=== PATIENT | male | born 1995 | race Caucasian/White ===

== ENCOUNTER 2016-12-26 08:24 | Emergency (ER) | payer BC ==
[2016-12-26 09:02] VITALS: BP 140/71
--- NOTE | 2016-12-26 09:04 | UC ---
Skin Complaint HPI - HPI Summary HPI Summary: He had some irritation in the area preceeding a blister type rash that has been present for a few days. It is mildy "irritated" but no outright pain or fever. No prior rash. It is itchy at times as well. - History of Current Complaint Chief Complaint: UCSkin Time Seen by Provider: 12/26/16 08:38 Stated Complaint: RASH LEFT LEG Hx Obtained From: Patient Onset/Duration: Gradual Onset Skin Exposure Onset/Duration: Days Ago Timing: Constant Onset Severity: Mild Current Severity: Moderate Location: Discrete - L groin and left lower back. Aggravating: Nothing Alleviating: Nothing Associated Signs & Symptoms: Positive: Negative - Allergy/Home Medications Allergies/Adverse Reactions: Allergies Allergy/AdvReac Type Severity Reaction Status Date / Time No Known Allergies Allergy Verified 12/26/16 08:33 Home Medications: Home Medications Modafinil TAB* [Provigil TAB*] 100 mg PO BID 12/26/16 [History Confirmed ] Review of Systems All Other Systems Reviewed And Are Negative: Yes PMH/Surg Hx/FS Hx/Imm Hx Endocrine History Of: Denies: Diabetes - Surgical History Surgical History: None - Family History Known Family History: Positive: Other - no hx of atopy. - Social History Occupation: Employed Full-time Alcohol Use: Weekly Substance Use Type: None Smoking Status (MU): Never Smoked Tobacco Physical Exam Triage Information Reviewed: Yes Appearance: Well-Appearing, No Pain Distress, Well-Nourished Vital Signs: Initial Vital Signs Temp 98.3 F 12/26/16 08:26 Pulse 62 12/26/16 08:26 Resp 15 12/26/16 08:26 BP 140/71 12/26/16 08:26 Pulse Ox 100 12/26/16 08:26 Vital Signs Reviewed: Yes Eyes: Positive: Conjunctiva Clear. Negative: Conjunctiva Inflamed ENT Exam: Normal Neck exam: Normal Neck: Positive: Supple, Nontender, No Lymphadenopathy Respiratory Exam: Normal Respiratory: Positive: Chest non-tender, Lungs clear, Normal breath sounds, No respiratory distress, No accessory muscle use. Negative: Respiratory distress Cardiovascular Exam: Normal Cardiovascular: Positive: RRR, No Murmur, Pulses Normal, Brisk Capillary Refill. Negative: Tachycardia Abdominal Exam: Normal Abdomen Description: Positive: Nontender, No Organomegaly, Soft Musculoskeletal Exam: Normal Musculoskeletal: Positive: Strength Intact, ROM Intact, No Edema Neurological Exam: Normal Neurological: Positive: Alert, Muscle Tone Normal, Fatigued Psychological Exam: Normal Skin: Positive: rashes - Left inguinal and Left lower back clear fluid filled vesicles with mild surrounding redness. non tender. Course/Dx - Course Course Of Treatment: viral pcr obtained to rule out genital herpes. several fluid vesicles unroofed and sample obtained. this is most c/w shingles as there are no ulcerations and it is not very tender. - Differential Diagnoses - Skin Complaint Differential Diagnoses: Abscess, Cellulitis, Contact Dermatitis, Diabetes, Eczema, Foreign Body, Lymphadenitis, Lymphangitis, Poison [place], Poison [place], Scabies, Tinea, Viral Exanthem - Diagnoses Provider Diagnoses: viral rash. possible shingles versus herpes. Discharge - Discharge Plan Condition: Good Disposition: HOME Prescriptions: Acyclovir CAP* [Zovirax CAP*] 400 mg PO 5ID #35 cap predniSONE TAB* [Deltasone TAB*] 20 mg PO DAILY #15 tab Patient Education Materials: Acute Rash (ED), Viral Exanthem (ED) Referrals: No Primary Care Phys,NOPCP [Primary Care Provider] - Additional Instructions: call back daily for results.
== END 2016-12-26 09:10 | disposition home or self-care (01) ==
LOC: UCCORT 08:24
DX: R21 Rash and other nonspecific skin eruption (principal)
CPT/HCPCS: 87529; 87798; 99212; G0463

== ENCOUNTER 2019-02-06 07:24 | Emergency (ER) | payer BC ==
--- OUTSIDE RECORDS SUMMARY | 2019-02-06 07:31 | XMS REPORT | Continuity of Care Document ---
:1995 External Reference #:[id number] Author Name Soco Purdy NP Address [address] [place] [address] Care Team Providers Name Role Phone Mitesh, Bryan, DO Care Team Information Sport Psychologist Unavailable Bryan Sagastume, DO Primary Care Physician Unavailable Payers Date Identification Numbers Payment Provider Subscriber Policy Number: [id number] MELISSA GERONIMO Andree Kamryn PayID: [id number] [address] [address] [place] [address] Family History Date Family Member(s) Observation Comments Father Non Contributory Mother Non Contributory Social History Type Date Description Comments Sex Unknown Occupation [employer] Tobacco Use Start: Unknown Never Smoked Cigarettes ETOH Use Current Alcohol Use - 1-3 Days A Week. Recreational Drug Use Never Used Drugs Allergies, Adverse Reactions, Alerts Description No Known Drug Allergies Medications Active Medications SIG Qnty Indications Ordering Provider Date Modafinil 1 tab by mouth in 60tabs Obed Padilla, 01/13/2019 200mg the in the morning M.D. Tablets and 1 in the afternoon Zyrtec Allergy 1 by mouth every Unknown 10mg day Tablets History Medications Xyrem 2.25 gm @hs repeat 540ml Obed Padilla, 05/22/2018 - 500mg/ml 2.25 in four hours M.D. 06/30/2018 Solution Modafinil 2 by mouth every 120tabs Obed Padilla, 11/08/2016 - 100mg morning and 1-2 at M.D. 01/13/2019 Tablets lunch Modafinil 1 by mouth every 60tabs Obed Padilla, 09/27/2016 - 100mg morning as needed M.D. 11/08/2016 Tablets May increase to 2 if symptoms are not improved in 2 weeks. DX narcolepsy Vital Signs Date Vital Result Comment 01/13/2019 9:06am Weight 199.00 lb Height 68.5 inches 5'8.50" BMI (Body Mass Index) 29.8 kg/m2 BP Systolic 111 mmHg BP Diastolic 72 mmHg Heart Rate 55 /min O2 % BldC Oximetry 98 % Body Temperature 97.4 F [place] Score 20 Pain Level 0 05/22/2018 3:55pm Weight 188.00 lb Height 68.5 inches 5'8.50" BMI (Body Mass Index) 28.2 kg/m2 BP Systolic 113 mmHg BP Diastolic 76 mmHg Heart Rate 68 /min O2 % BldC Oximetry 98 % Body Temperature 97.9 F [place] Score 18 Pain Level 0 04/11/2018 7:32am Weight 191.00 lb Height 68.5 inches 5'8.50" BMI (Body Mass Index) 28.6 kg/m2 BP Systolic 115 mmHg BP Diastolic 69 mmHg Heart Rate 44 /min O2 % BldC Oximetry 98 % Body Temperature 97.6 F Pain Level 0 11/06/2017 2:28pm Weight 195.00 lb Height 68.5 inches 5'8.50" BMI (Body Mass Index) 29.2 kg/m2 BP Systolic 129 mmHg BP Diastolic 78 mmHg Heart Rate 63 /min O2 % BldC Oximetry 98 % Body Temperature 98.6 F Pain Level 0 01/08/2017 8:06am Weight 194.00 lb Height 68.5 inches 5'8.50" BMI (Body Mass Index) 29.1 kg/m2 BP Systolic 115 mmHg BP Diastolic 72 mmHg Heart Rate 56 /min O2 % BldC Oximetry 96 % Body Temperature 97.5 F 11/08/2016 8:03am Weight 197.00 lb Height 68.5 inches 5'8.50" BMI (Body Mass Index) 29.5 kg/m2 BP Systolic 118 mmHg BP Diastolic 72 mmHg Heart Rate 52 /min O2 % BldC Oximetry 99 % Body Temperature 97.8 F 09/04/2016 8:42am Weight 196.00 lb Height 68.5 inches 5'8.50" BMI (Body Mass Index) 29.4 kg/m2 BP Systolic 126 mmHg BP Diastolic 78 mmHg Heart Rate 83 /min O2 % BldC Oximetry 97 % Body Temperature 98.0 F [place] Score 17 Neck Circumference in inches 16.25 Results Test Date Facility Test Result H/L Range Note Liver Function 01/08/2017 [facility] Total Protein 6.8 g/dL N 6.4-8.2 1 Tests [address] [place] [address] [phone] Albumin 4.0 g/dL N 3.4-5.0 Globulin 2.8 g/dL N 1.9-4.3 Alb/Glob 1.4 ratio Bilirubin,Total 0.5 mg/dL N 0.2-1.0 Bilirubin,Direct 0.1 mg/dL N 0.0-0.2 Bilirubin,Indirect 0.4 mg/dL N 0.0-0.9 Sgot/Ast 34 U/L N 15-37 SGPT/Alt 37 U/L N 12-78 Alkaline Phosphatase 69 U/L N 45-117 Basic Metabolic Panel 01/08/2017 [facility] Glucose 76 mg/dL N 74-106 [address] [place], [place] [id number] [phone] BUN 27 mg/dL High 7-18 Creatinine 1.3 mg/dL N 0.6-1.3 Glom Filtration Rate, Estimate >60 mL/min >60 If >60 mL/min >60 2 BUN/Creat 20.7 ratio Sodium 142 mmol/L N 136-145 Potassium 4.1 mmol/L N 3.5-5.1 Chloride 107 mmol/L N 98-107 Carbon Dioxide 29 mmol/L N 21-32 Anion Gap 6 mEq/L Low 8-16 Calcium 9.3 mg/dL N 8.5-10.1 1 G47.419 G47.9 2 Note: Persistent reduction for 3 months or more in an eGFR <60 mL/min/1.73 m2 defines CKD. Patients with eGFR values >/=60 mL/min/1.73 m2 may also have CKD if evidence of persistent proteinuria is present. The original MDRD equation for estimated GFR is not valid for patients less than 18 years of age. Additional information may be found at [email or web address]. Procedures Date Code Description Status 09/17/2016 11025 MSLT Sleep Study Completed 09/16/2016 68241 Sleep Staging 4Or More Para Completed 09/04/2016 07275 Fiberoptic Laryngoscopy,Diag. 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 Office Visit 04/11/2018 Main Office Soco Marizol Purdy, SECURITIES LENDING TRADER G47.9 Sleep disorder, 7:30a unspecified G47.419 Narcolepsy without cataplexy Office Visit 11/06/2017 2:30p Main Office Soco A G47.419 Narcolepsy without Purdy, SECURITIES LENDING TRADER cataplexy Office Visit 01/08/2017 8:00a Main Office Soco A G47.419 Narcolepsy without Purdy, SECURITIES LENDING TRADER cataplexy Office Visit 11/08/2016 8:00a Main Office Soco A G47.419 Narcolepsy without Purdy, SECURITIES LENDING TRADER cataplexy Office Visit 09/27/2016 1:45p Main Office Soco A G47.419 Narcolepsy without Purdy, SECURITIES LENDING TRADER cataplexy G47.9 Sleep disorder, unspecified Office Visit 09/04/2016 8:30a Main Office Soco A G47.9 Sleep disorder, Gurwinder, SECURITIES LENDING TRADER unspecified R06.83 Snoring G47.00 Insomnia, unspecified Plan of Treatment Future Appointment(s):07/15/2019 8:45 am - Soco Purdy, SECURITIES LENDING TRADER at Main [id number]/04/2016 - Soco Purdy NPG47.9 Sleep disorder, pfzloxrwoaqD64.83 GkcskcwZ15.00 Insomnia, unspecifiedNew Labs:Drug Abuse W/Confirm, Ur, Ordered: 09/04/16New Orders:PSG/MSLT, Scheduled: 09/16/16
--- OUTSIDE RECORDS SUMMARY | 2019-02-06 07:31 | XMS REPORT | Continuity of Care Document ---
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 Recreational Drug Use Never Used Drugs Allergies, Adverse Reactions, Alerts Description No Known Drug Allergies Medications Active Medications SIG Qnty Indications Ordering Provider Date Modafinil 2 by mouth every 120tabs Obed Padilla, 11/08/2016 100mg Tablets morning and 1-2 M.D. at lunch Zyrtec Allergy 1 by mouth every Unknown 10mg day Tablets History Medications Xyrem 2.25 gm @hs repeat 540ml Obed Padilla, 05/22/2018 - 500mg/ml 2.25 in four hours M.D. 06/30/2018 Solution Modafinil 1 by mouth every 60tabs Obed [...] Oximetry 98 % Body Temperature 97.4 F Pain Level 0 05/22/2018 3:55pm Weight 188.00 lb Height 68.5 inches 5'8.50" BMI (Body Mass Index) 28.2 kg/m2 BP Systolic 113 mmHg BP Diastolic 76 mmHg Heart Rate 68 /min O2 % BldC Oximetry 98 % Body Temperature 97.9 F [place] Score 18 Pain Level 0 04/11/2018 7:32am [...] Oximetry 97 % Body Temperature 98.0 F [place] Score 17 Neck Circumference in inches 16.25 Results Test Date Facility Test Result H/L Range Note Liver Function 01/08/2017 [facility] Total Protein 6.8 g/dL N 6.4-8.2 1 Tests [address] [place] [address] [phone] Albumin 4.0 g/dL N 3.4-5.0 Globulin 2.8 g/dL N 1.9-4.3 Alb/Glob 1.4 ratio Bilirubin,Total 0.5 mg/dL N 0.2-1.0 Bilirubin,Direct 0.1 mg/dL N 0.0-0.2 Bilirubin,Indirect 0.4 mg/dL N 0.0-0.9 Sgot/Ast 34 U/L N 15-37 SGPT/Alt 37 U/L N 12-78 Alkaline Phosphatase 69 U/L N 45-117 Basic Metabolic Panel 01/08/2017 [facility] Glucose 76 mg/dL N 74-106 [address] [place], [place] [address] [phone] BUN 27 mg/dL High 7-18 Creatinine 1.3 [...] [email or web address]. Procedures Date Code Description Status 09/17/2016 73806 MSLT Sleep Study Completed 09/16/2016 72818 Sleep Staging 4Or More Para Completed 09/04/2016 22757 Fiberoptic Laryngoscopy,Diag. Completed Encounters Type Date Location Provider Dx Diagnosis Office Visit 05/22/2018 Main Office Francesco Gamboa M.D G47.419 Narcolepsy without 3:45p cataplexy Office Visit 04/11/2018 Main Office Soco Purdy G47.9 Sleep disorder , 7:30a SENIOR JAVA DATA ARCHITECT unspecified G47.419 Narcolepsy without cataplexy Office Visit 11/06/2017 2:30p Main Office Soco A G47.419 Narcolepsy without Purdy, SENIOR JAVA DATA ARCHITECT cataplexy Office Visit 01/08/2017 8:00a Main Office Soco A G47.419 Narcolepsy without Purdy, SENIOR JAVA DATA ARCHITECT cataplexy Office Visit 11/08/2016 8:00a Main Office Soco A G47.419 Narcolepsy without Purdy, SENIOR JAVA DATA ARCHITECT cataplexy Office Visit 09/27/2016 1:45p Main Office Soco A G47.419 Narcolepsy without Purdy, SENIOR JAVA DATA ARCHITECT cataplexy G47.9 Sleep disorder, unspecified Office Visit 09/04/2016 8:30a Main Office Soco A G47.9 Sleep disorder, Purdy, SENIOR JAVA DATA ARCHITECT unspecified R06.83 Snoring G47.00 Insomnia, unspecified Plan of Treatment 09/04/2016 - Soco Purdy, NPG47.9 Sleep disorder, hbzyrorkkzgC19.83 TuimlqeL83.00 Insomnia, unspecifiedNew Labs:Drug Abuse W/Confirm, Ur, Ordered: 09/04/16New Orders:PSG/MSLT, Scheduled: 09/16/16
--- NOTE | 2019-02-06 08:29 | UC ---
Back Pain HPI - HPI Summary HPI Summary: 23-year-old male comes in with a chief complaints of upper back pain. Pain is shoulder blades thoracic spine and also in the lower cervical spine. Pain is worse with movement of arms taking a deep breath. He is not short of breath. No fevers or chills rash. He has been seeing chiropractor does help some with the pain. he is also seen in care doctor had some muscle relaxers months ago she had only helps briefly. The pain does not go down back does not go into his arms weakness or numbness. - History of Current Complaint Chief Complaint: UCBackPain Stated Complaint: UPPER BACK PAIN Time Seen by Provider: 02/06/19 08:14 Pain Intensity: 5 - Allergies/Home Medications Allergies/Adverse Reactions: Allergies Allergy/AdvReac Type Severity Reaction Status Date / Time No Known Allergies Allergy Verified 02/06/19 07:31 Home Medications: Home Medications Cyclobenzaprine TAB* [Flexeril 10 MG TAB*] 10 mg PO BID PRN 02/06/19 [History Confirmed 02/06/19] PMH/Surg Hx/FS Hx/Imm Hx Previously Healthy: Yes - Surgical History Surgical History: None - Family History Known Family History: Positive: Other - no hx of atopy. - Social History Alcohol Use: Occasionally Substance Use Type: None Smoking Status (MU): Never Smoked Tobacco Review of Systems All Other Systems Reviewed And Are Negative: Yes Constitutional: Positive: Negative Skin: Positive: Negative Eyes: Positive: Negative ENT: Positive: Negative Respiratory: Positive: Negative Cardiovascular: Positive: Negative Gastrointestinal: Positive: Negative Motor: Positive: Negative Neurovascular: Positive: Negative Musculoskeletal: Positive: Other: - SEE HPI Neurological: Positive: Negative Psychological: Positive: Negative Is Patient Immunocompromised?: No Physical Exam Triage Information Reviewed: Yes Appearance: Well-Appearing, No Pain Distress, Well-Nourished Vital Signs: Initial Vital Signs Temp 98.1 F 02/06/19 07:34 Pulse 56 02/06/19 07:34 Resp 16 02/06/19 07:34 BP 135/78 02/06/19 07:34 Pulse Ox 100 02/06/19 07:34 Vital Signs Reviewed: Yes Eye Exam: Normal Eyes: Positive: Conjunctiva Clear Neck: Positive: Supple, Other: - MILD TENDERNESS LOWER POSTERIOR NECK. FROM. Respiratory: Positive: Lungs clear, Normal breath sounds, No respiratory distress, Other: - Patient is tender to palpation on the medial aspect scapula. Cardiovascular: Positive: RRR Musculoskeletal: Positive: Strength Intact, Other: - Normal radial pulses bilaterally. Strength in the fingers wrist elbows and shoulders is normal. No sensation deficit normal capillary refill. Range of motion of the fingers wrist elbows is normal. Shoulder extension is decreased to 110 bilaterally and abduction also 110 bilaterally limited by discomfort in the upper back. Internal rotation right and left are both T8 Neurological: Positive: Alert, Muscle Tone Normal Psychological Exam: Normal Psychological: Positive: Age Appropriate Behavior Skin Exam: Normal Back Pain Course/Dx - Course Course Of Treatment: Patient Name: JAYLEEN STEARNS Medical Record#: [id number] Ordering Physician: Bassem Uribe MD Acct.#: [id number] : 1995 Age: 23 Sex: M Location: [facility] Exam Date: 02/06/19821 ADM Status: REG ER Order Information: THORACIC SPINE 2 VWS Accession Number: [id number] CPT: 83715 HISTORY: PAIN X 8 MONTHS,WORSE LAST 2 DAYS COMPARISONS: None relevant available at the time of dictation. VIEWS: 2, Frontal and lateral views of the thoracic spine. FINDINGS: ALIGNMENT: There is a trace scoliotic curvature of the spine. VERTEBRAL BODIES: The vertebral body heights are normal. The interpedicular distances are normal. JOINTS: Unremarkable. INTERVERTEBRAL DISCS: The intervertebral disc heights are normal. SOFT TISSUE: Unremarkable OTHER: The visualized lungs are clear. IMPRESSION: UNREMARKABLE RADIOGRAPHS OF THE THORACIC SPINE. <Electronically signed by Rony Robertson MD in OV> 02/06/19941 Patient Name: JAYLEEN STEARNS Medical Record#: [id number] Ordering Physician: Bassem Uribe MD Acct.#: [id number] : 1995 Age: 23 Sex: M Location: [facility] Exam Date: 02/06/19821 ADM Status: REG ER Order Information: SP CERVICAL 4+VWS Accession Number: [id number] CPT: 08871 HISTORY: PAIN X 8 MONTHS,WORSE LAST 2 DAYS COMPARISONS: None relevant available at the time of dictation. VIEWS: 5, Frontal, lateral, open-mouth odontoid, and bilateral oblique views of the cervical spine. FINDINGS: The cervical spine is visualized from the skull base through C7-T1. ALIGNMENT: The alignment is normal. VERTEBRAL BODIES: The odontoid process is intact. The atlantoaxial intervals are symmetric. JOINTS: There is no subluxation or dislocation. The facet joints are unremarkable. There is no osseous neural foraminal narrowing on the oblique views. INTERVERTEBRAL DISCS: The intervertebral disc heights are normal. SOFT TISSUE: The prevertebral soft tissues are normal. OTHER: The skull base is normal. The lung apices are clear. IMPRESSION: STRAIGHTENING OF THE CERVICAL LORDOSIS. <Electronically signed by Rony Robertson MD in OV> 02/06/19 1000 I discussed the x-rays with the patient. He has mild scoliosis on thoracic spine x-ray. Unsure if this is chronic or secondary to muscle contraction with his present pain. Patient heart he has muscle relaxer prescribed by his primary care physician. Is also taking ibuprofen. Plan is to follow-up with sports medicine. - Differential Dx/Diagnosis Provider Diagnosis: Thoracic back pain, Cervical pain (neck) Discharge - Sign-Out/Discharge Documenting (check all that apply): Patient Departure All imaging exams completed and their final reports reviewed: Yes - Discharge Plan Condition: Stable Disposition: HOME Patient Education Materials: Thoracic Pain (ED), Neck Pain (ED) Referrals: Chandrakant Sagastume DO [Primary Care Provider] - [facility] [Provider Group] Additional Instructions: FOLLOW UP WITH SPORTS MEDICINE. GET RECHECKED SOONER IF YOUR CONDITION WORSENS OR ANY QUESTIONS OR CONCERNS. - Billing Disposition and Condition Condition: STABLE Disposition: Home
[2019-02-06 10:35] VITALS: BP 115/75
== END 2019-02-06 10:39 | disposition home or self-care (01) ==
LOC: UCCORT 07:24
DX: M54.6 Pain in thoracic spine (principal); M54.2 Cervicalgia
CPT/HCPCS: 72050; 72070; 99211; G0463

== ENCOUNTER 2019-03-19 17:26 | Emergency (ER) | payer BC ==
[2019-03-19 17:40] VITALS: BP 125/73
--- NOTE | 2019-03-19 18:12 | ED ---
Skin Complaint - HPI Summary HPI Summary: 23 yr old male with the complaint of growth left cheek. Onset about three weeks ago. He thought it was a pimple. It has gotten bigger. He thought that maybe he could pop it, and took a needle and stuck it in a few days ago. It is hard and it has at some times had some oozing. No other complaints. No fever or chills. - History of Current Complaint Chief Complaint: UCSkin Time Seen by Provider: 03/19/19 17:56 Stated Complaint: SKIN COMPLAINT Pain Intensity: 0 - Allergy/Home Medications Allergies/Adverse Reactions: Allergies Allergy/AdvReac Type Severity Reaction Status Date / Time No Known Allergies Allergy Verified 03/19/19 17:41 PMH/Surg Hx/FS Hx/Imm Hx Endocrine/Hematology History: Denies: Hx Diabetes Infectious Disease History: No Infectious Disease History: Denies: Traveled Outside the [place] in Last 30 Days - Family History Known Family History: Positive: Other - no hx of atopy. - Social History Occupation: Employed Full-time Lives: With Family Alcohol Use: Weekly Substance Use Type: Reports: None Smoking Status (MU): Never Smoked Tobacco Review of Systems Constitutional: Negative Positive: Other - growth left cheek. All Other Systems Reviewed And Are Negative: Yes Physical Exam Triage Information Reviewed: Yes Vital Signs On Initial Exam: Initial Vitals Temp Pulse Resp BP Pulse Ox 97.6 F 62 16 125/73 100 03/19/19 17:35 03/19/19 17:35 03/19/19 17:35 03/19/19 17:35 03/19/19 17:35 Vital Signs Reviewed: Yes Appearance: Positive: Well-Appearing, No Pain Distress Skin: Positive: Warm, Skin Color Reflects Adequate Perfusion Head/Face: Positive: Other Eyes: Positive: EOMI ENT: Positive: Pharynx normal, Other - he has a growth, mass about 1cm in diamter and protruding about 1cm from the face that is hard, and appears somewhat friable. Non tender. On the inside of his cheek no mass palptated. no lymphadenopathy neck. Dental: Negative: Cervical Lymphadenopathy Neck: Positive: Nontender Respiratory/Lung Sounds: Positive: Clear to Auscultation, Breath Sounds Present Cardiovascular: Positive: RRR. Negative: Murmur Abdomen Description: Negative: Distended Musculoskeletal: Positive: Strength/ROM Intact Neurological: Positive: Sensory/Motor Intact, Alert, Oriented to Person Place, Time, CN Intact II-III, Normal Gait, Speech Normal Psychiatric: Positive: Normal Diagnostics - Vital Signs Vital Signs Temp Pulse Resp BP Pulse Ox 03/19/19 17:35 97.6 F 62 16 125/73 100 - Laboratory Lab Statement: Any lab studies that have been ordered have been reviewed, and results considered in the medical decision making process. Course/Dx - Course Course Of Treatment: There is a 1 cm size mass right side of face that appear may be hemagioma vs basal cell. I have referred him to Dr Padilla ENT, and also to plastic surgery for careful removal and closure. The patient will call his primary doctor as well for assistance with follow up . - Diagnoses Provider Diagnoses: Skin growth Discharge - Sign-Out/Discharge Documenting (check all that apply): Patient Departure All imaging exams completed and their final reports reviewed: No Studies - Discharge Plan Condition: Good Disposition: HOME Patient Education Materials: Basal Cell Carcinoma (DC), Skin Cancer Prevention (ED) Referrals: Chandrakant Sagastume DO [Primary Care Provider] - 1 Day Obed Padilla MD [Medical Doctor] - 1 Day Yuliya HAGAN,Danny Horta [Medical Doctor] - 1 Day - Billing Disposition and Condition Condition: GOOD Disposition: Home
== END 2019-03-19 18:19 | disposition home or self-care (01) ==
LOC: UCCORT 17:26
DX: D49.2 Neoplasm of unspecified behavior of bone, soft tissue, and skin (principal)
CPT/HCPCS: 99211; G0463

== ENCOUNTER 2019-06-29 21:05 | Emergency (ER) | payer BC ==
[2019-06-29 21:36] VITALS: BP 115/69
[2019-06-29] MEDS ORDERED: Acetaminophen TAB* 325 MG PO ONE (21:47)
[2019-06-29] MEDS ORDERED: Ondansetron ODT TAB* 4 MG PO ONE (21:48)
--- NOTE | 2019-06-29 21:55 | ED ---
Respiratory - HPI Summary HPI Summary: 24 yr old male with the complaint of fever, chills, body aches, emesis times two , mild cough. He has no abdominal pain, no diarrhea. Onset of illness was prior to Noon today with his first fever afternoon today around 3pm. He took 400 mg of ibuprofen about 830 pm. He has no headache, no photophobia. He has no other complaints. He last urinated an hour ago and it was clear. - History of Current Complaint Chief Complaint: UCGeneralIllness Stated Complaint: FLU LIKE SYMPTOMS Time Seen by Provider: 06/29/19 21:44 Pain Intensity: 9 - Allergy/Home Medications Allergies/Adverse Reactions: Allergies Allergy/AdvReac Type Severity Reaction Status Date / Time No Known Allergies Allergy Verified 06/29/19 21:27 Home Medications: Home Medications Ibuprofen TAB* [Advil TAB*] 400 mg PO Q6H PRN 06/29/19 [History Confirmed ] PMH/Surg Hx/FS Hx/Imm Hx Endocrine/Hematology History: Denies: Hx Diabetes Infectious Disease History: Yes Infectious Disease History: Reports: Hx Shingles Denies: Traveled Outside the [place] in Last 30 Days - Family History Known Family History: Positive: Other - no hx of atopy. - Social History Occupation: Employed Full-time Alcohol Use: Weekly Substance Use Type: Reports: None Smoking Status (MU): Never Smoked Tobacco Review of Systems Positive: Fever, Chills, Fatigue Positive: Vomiting, Nausea Positive: Myalgia Negative: Rash Negative: Headache All Other Systems Reviewed And Are Negative: Yes Physical Exam Triage Information Reviewed: Yes Vital Signs On Initial Exam: Initial Vitals Temp Pulse Resp BP Pulse Ox 100.2 F 108 24 115/69 96 06/29/19 21:29 06/29/19 21:29 06/29/19 21:29 06/29/19 21:29 06/29/19 21:29 Vital Signs Reviewed: Yes Appearance: Positive: Well-Appearing, No Pain Distress Skin: Positive: Warm, Skin Color Reflects Adequate Perfusion, Other - NO rash Head/Face: Positive: Normal Head/Face Inspection Eyes: Positive: EOMI, [place], Other: - no photophobia ENT: Positive: Normal ENT inspection, Pharynx normal, TMs normal. Negative: Muffled voice Neck: Positive: Supple, Nontender. Negative: Nuchal Rigidity Respiratory/Lung Sounds: Positive: Clear to Auscultation, Breath Sounds Present Cardiovascular: Positive: RRR. Negative: Murmur Abdomen Description: Positive: Nontender. Negative: CVA Tenderness (R), CVA Tenderness (L), Distended Musculoskeletal: Positive: Strength/ROM Intact Neurological: Positive: Sensory/Motor Intact, Alert, Oriented to Person Place, Time, CN Intact II-III, Normal Gait, Speech Normal Psychiatric: Positive: Normal - Harvey Coma Scale Best Eye Response: 4 - Spontaneous Best Motor Response: 6 - Obeys Commands Best Verbal Response: 5 - Oriented Coma Scale Total: 15 Diagnostics - Vital Signs Vital Signs Temp Pulse Resp BP Pulse Ox 06/29/19 21:29 100.2 F 108 24 115/69 96 - Laboratory Lab Statement: Any lab studies that have been ordered have been reviewed, and results considered in the medical decision making process. Disposition - Course Course Of Treatment: 24 yr old with flu like symptoms. Rapid influenza. - Diagnoses Provider Diagnoses: Viral syndrome, Nausea and vomiting Discharge ED - Sign-Out/Discharge Documenting (check all that apply): Patient Departure All imaging exams completed and their final reports reviewed: No Studies - Discharge Plan Condition: Good Disposition: HOME Prescriptions: Ondansetron ODT TAB* [Zofran 4 MG Odt TAB*] 4 mg PO Q6H PRN #10 tab.odt PRN Reason: Nausea Patient Education Materials: Acute Nausea and Vomiting (ED), Viral Syndrome (ED ) Referrals: Chandrakant Sagastume DO [Primary Care Provider] - 2 Days Additional Instructions: GO to the ER for any new or worsening symptoms. - Billing Disposition and Condition Condition: GOOD Disposition: Home
[2019-06-29 22:07] LABS: Influenza A Molecular NEGATIVE (Negative); Influenza B Molecular NEGATIVE (Negative)
== END 2019-06-29 22:09 | disposition home or self-care (01) ==
LOC: UCCORT 21:05
DX: B34.9 Viral infection, unspecified (principal); R11.2 Nausea with vomiting, unspecified; R53.83 Other fatigue; M79.10 Myalgia, unspecified site
CPT/HCPCS: 99212; A9270-GY; G0463